=== PATIENT | male | born 1980 | race Caucasian/White ===

== ENCOUNTER 2020-05-30 09:32 | Outpatient (RCR) | payer OTHER, SELFPAY | END 2020-06-04 23:59 | LOC: EMPH 09:32 | PROVIDERS: PCP Internal Medicine; Referring Provider Family Medicine Geriatric Medicine; Visit Provider Family Medicine Geriatric Medicine | DX: Z03.818 Encounter for observation for suspected exposure to other biological agents ruled out (principal) | CPT/HCPCS: 87426 ==